=== PATIENT | female | born 1945 | race Caucasian/White ===

== ENCOUNTER 2020-08-11 06:53 | Outpatient (NON) | payer MEDICARE, OTHER, SELFPAY ==
[2020-08-11 21:43] LABS: SARS-CoV-2 RNA PCR Negative
== END 2020-08-11 06:54 ==
PROVIDERS: PCP Internal Medicine; Visit Provider Internal Medicine
DX: Z20.828 Contact with and (suspected) exposure to other viral communicable diseases (principal)
CPT/HCPCS: 87635; C9803; U0003

== ENCOUNTER 2020-09-01 09:17 | Outpatient (CLI) | payer MEDICARE, OTHER, SELFPAY ==
--- NOTE | ~2020-09-01 | XR_ITS ---
EXAMINATION: XR knee LT 3V DATE: 09/01/2020 09:50 INDICATION: Left knee pain. TECHNIQUE: 3 views of left knee were obtained. COMPARISON: None. FINDINGS: Bone alignment is normal. No fracture. There is mild tricompartmental osteoarthritis. No kn ee joint effusion. IMPRESSION: 1. Mild left knee osteoarthritis. Reviewed, dictated and finalized at location B. INDUSTRIAL DEVELOPMENT CONSULTANT
== END 2020-09-01 09:18 | disposition home or self-care (01) ==
LOC: ANHIMG 09:22
PROVIDERS: PCP Internal Medicine; Visit Provider Nurse Practitioner
DX: M17.12 Unilateral primary osteoarthritis, left knee (principal)
CPT/HCPCS: 73562

== ENCOUNTER 2020-09-12 13:59 | Outpatient (CLI) | payer MEDICARE, OTHER, SELFPAY ==
--- NOTE | ~2020-09-12 | US_ITS ---
EXAMINATION: US joint non vasc ltd LT DATE: 09/12/2020 14:25 INDICATION: Left popliteal mass and pain. TECHNIQUE: Multiple grayscale and Doppler ultrasound images of the left lower limb popliteal region w ere obtained. COMPARISON: Left knee radiographs 09/01/2020 FINDINGS: There is no abnormal mass or Ortiz's cyst. IMPRESSION: 1. No abnormal mass or Ortiz cyst in the patient's area of concern in the left popliteal region. Reviewed, dictated and finalized at location A. T LINE OPERATOR
== END 2020-09-12 14:00 | disposition home or self-care (01) ==
PROVIDERS: PCP Internal Medicine; Visit Provider Nurse Practitioner
DX: M25.562 Pain in left knee (principal)
CPT/HCPCS: 76882

== ENCOUNTER 2021-03-06 19:00 | Emergency (ER) | payer MEDICARE, OTHER, SELFPAY ==
--- NOTE | ~2021-03-06 | CT_ITS ---
EXAMINATION: CTA brain carotid DATE: 03/06/2021 21:45 INDICATION: Right-sided neck and facial pain TECHNIQUE: Computed tomographic angiography (CTA) of the head was performed without and with 100 mL O mnipaque-350 intravenous contrast. CTA of the neck was performed with intravenous contrast. The dose- length product was 1462.00 mGy-cm. Maximum intensity projection and volume rendered 3D-reconstruction s were created by the technologist on a separate workstation. Automated exposure control and iterativ e reconstruction technique were employed. COMPARISON: None. FINDINGS: HEAD CTA: There is no acute intraparenchymal hemorrhage. No evidence of mass lesion. No evidence of a cute infarction. There is mild periventricular and subcortical hypodensity probably related to small vessel ischemic disease. There is mild prominence of the sulci and ventricles related to cerebral atr ophy. Intracranial calcified cerebral atherosclerosis is noted. There are no extra-axial collections. There is no mass effect or midline shift. Changes in the globes are likely from ocular lens surgery. There is opacification of the sphenoid sinuses with calcified material, consistent with chronic sinu sitis. There is no significant stenosis of the basilar artery or posterior cerebral arteries. There is no si gnificant stenosis of the intracranial internal carotid arteries or the anterior or middle cerebral a rteries. The anterior communicating artery and posterior communicating arteries are normal. There is no aneurysm. NECK CTA: The thyroid gland is unremarkable. The submandibular and parotid glands are symmetric. Ther e is no lymphadenopathy. There are no masses identified. The airway is unremarkable. There are no oss eous abnormalities. The superior mediastinum is unremarkable. There is 0% stenosis of the proximal right internal carotid artery relative to normal distal artery l umen diameter (NASCET criteria). There is 0% stenosis of the proximal left internal carotid artery re lative to normal distal artery lumen diameter. IMPRESSION: 1. No acute intracranial abnormality. Normal head CTA. 2. 0% stenosis of the proximal right internal carotid artery relative to normal distal artery lumen d iameter (NASCET criteria). 3. 0% stenosis of the proximal left internal carotid artery relative to normal distal artery lumen di ameter. 4. Chronic sphenoid sinusitis. Reviewed, dictated and finalized at location A. IMPRESSION: 1. No acute intracranial abnormality. Normal head CTA. 2. 0% stenosis of the proximal right internal carotid artery relative to normal distal artery lumen diameter (NASCET criteria). 3. 0% stenosis of the proximal left internal carotid artery relative to normal distal artery lumen diameter. 4. Chronic sphenoid sinusitis.
[2021-03-06 19:26] VITALS: BP 142/73; PULSE 85; RESP 18; TEMP 36.5; O2SAT 100
[2021-03-06 20:01] VITALS: BP 142/73; PULSE 86; RESP 18; TEMP 36.5; O2SAT 99
[2021-03-06 21:00] LABS: Basophils Percent Auto 0.6 % (0.2-1.2); Eosinophils Absolute Auto 0.2 K/mm3 (0-0.3); Eosinophils Percent Auto 2.2 % (0-4.4); Hematocrit 42.3 % (37.0-47.0); Hemoglobin 14.2 g/dL (12.0-15.0); Immature Granulocyte Absolute 0.03 K/mm3 (0.00-0.031); Immature Granulocyte Percent A 0.4 % (0-0.5); Lymphocytes Absolute Auto 2.14 K/mm3 (0.9-3.2); Lymphocytes Percent Auto 31.7 % (18.3-44.2); Mean Corpuscular HGB Conc 33.6 g/dl (32-36); Mean Corpuscular Hemoglobin 30.9 pg (26-34); Mean Corpuscular Volume 92.2 fl (80-100); Mean Platelet Volume 7.9 fl (7.4-10.4); Monocytes Absolute Auto 0.5 K/mm3 (0.1-0.6); Monocytes Percent Auto 7.2 % (2.6-8.5); Neutrophils Absolute Auto 3.9 K/mm3 (1.3-6.7); Neutrophils Percent Auto 57.9 % (45.5-73.1); Platelet Count Result 334 k/mm3 (150-375); Red Blood Count 4.59 M/mm3 (4.2-5.4); Red Cell Distribution Width 12.6 % (11.5-14.5); White Blood Count 6.8 K/mm3 (4.5-10.0)
[2021-03-06 21:12] LABS: Anion Gap 3 mmol/L (8-16); Blood Urea Nitrogen 10 mg/dL (7-17); CRP < 0.5 mg/dL (<1.0); Calcium 9.4 mg/dL (8.4-10.2); Carbon Dioxide 30 mmol/L (22-30); Chloride 103 mmol/L (98-107); Estimated CRCL calculation 39 ml/min; Estimated Glomerular Filt Rate > 60; Glucose 90 mg/dL (65-105); Potassium 3.8 mmol/L (3.4-5.0); Sodium 136 mmol/L (137-145)
--- NOTE | 2021-03-06 22:00 | ED.NECK ---
HPI - Neck Pain/Injury General Chief Complaint: Neck Pain/Injury Stated Complaint: head pain Time Seen by Provider: 03/06/21 20:22 Source: patient and RN notes reviewed Mode of arrival: ambulatory Limitations: no limitations History of Present Illness HPI Narrative: This is 75 year old female who presents for evaluation of right neck pain and headache. She states she developed her pain 1 week after receiving her COVID vaccination. She reports constant dull ache to right posterior neck and base of her skull. She also reports pain to right face and right jaw. She was evaluated by a chiropractor and she states her pain was relieved for 3 days gut it returned. She has continued to have constant pain. She states her was concerned she may have a blood clot. She denies nausea, vomiting, blurred vision, dizziness, focal weakness. She took aleve for pain , and it gave her a small amount of relief. Related Data Home Medications Medication Instructions Recorded Confirmed testosterone 50 mg/5 gram (1 %) 1 packet TRANSDERM DAILY 09/10/19 09/09/20 transdermal gel Allergies Allergy/AdvReac Type Severity Reaction Status Date / Time No Known Allergies Allergy Verified 09/01/20 08:29 Review of Systems Review of Systems: All systems reviewed & are unremarkable except as noted in HPI and below PMFSH Past Medical History Medical History (Updated 03/07/21 @ 00:00 by Danna Amador) Benign essential hypertension Fibromyalgia Mixed hyperlipidemia Family History Family History Mother Family history of osteoporosis Hypertension Family history of osteoarthritis Carcinoma of colon Family history of heart disease in male family member before age 55 Father Family history of Alzheimer's disease Family history of heart disease in male family member before age 55 Sibling Family history of lung cancer Social History Social History Smoking status: Never smoker Alcohol intake: never Exam Const: General: no acute distress and alert Orientation/consciousness: patient oriented x3 HENMT: Head: normocephalic and atraumatic Ears: external ears normal and TM's normal bilaterally Face and sinus: normal facial exam, sinuses nontender and face symmetric Eyes: Conjunctivae: conjunctivae normal Pupils: Equal, round and reactive pupils present EOM: EOMs intact bilaterally Chest: Chest palpation & inspection: normal inspection of the chest Resp: Effort & Inspection: normal respiratory effort and no retractions Auscultation: clear to auscultation bilaterally Cardio: Rate: regular rate Rhythm: regular rhythm Heart sounds: no murmurs GI: GI Palp: Yes Soft to palpation, No Tenderness to palpation present (GI) and No Guarding due to palpation present (GI) Auscultation: normal bowel sounds Neuro: General: patient oriented x3 and moves all extremities Cranial nerves: Yes Nystagmus not present Psych: Appearance: grossly normal Mental Status: mental status grossly normal Affect: normal affect Course Reevaluation(s) Reevaluation #1: I Discussed with patient CT did not show any clots or stenosis. It just shows chronic sinusitis. She has follow up with PCP on . She request flexeril Date: 03/06/21 Time: 22:25 Vital Signs Vital signs: Vital Signs Temperature 97.7 F 03/06/21 19:26 Pulse Rate 85 03/06/21 19:26 Respiratory Rate 18 03/06/21 19:26 Blood Pressure 142/73 H 03/06/21 19:26 Pulse Oximetry 100 03/06/21 19:26 Temperature 97.7 F 03/06/21 20:01 Pulse Rate 70 03/06/21 22:30 Respiratory Rate 16 03/06/21 22:30 Blood Pressure 130/62 03/06/21 22:30 Pulse Oximetry 99 03/06/21 22:30 MDM - Neck Pain/Injury Lab Data Attestation: I reviewed the patient's lab results. Result diagrams: 03/06/21 20:53 03/06/21 20:53 L
[2021-03-06 22:30] VITALS: BP 130/62; PULSE 70; RESP 16; O2SAT 99
== END 2021-03-06 22:37 | disposition home or self-care (01) ==
PROVIDERS: Emergency Provider General Practice; PCP Internal Medicine
DX: M54.2 Cervicalgia (principal); I10 Essential (primary) hypertension; M79.7 Fibromyalgia; E78.2 Mixed hyperlipidemia
CPT/HCPCS: 36415; 70496; 70498; 80048; 85025; 86140; 99284; Q9967

== ENCOUNTER 2021-10-05 07:23 | Outpatient (CLI) | payer MEDICARE, OTHER, SELFPAY ==
--- NOTE | ~2021-10-05 | XR_ITS ---
EXAMINATION: XR barium swallow DATE: 10/05/2021 08:22 INDICATION: Dysphagia, unspecified TECHNIQUE: The patient drank thick barium, gas-producing crystals, and thin barium. Fluoroscopy of th e hypopharynx and esophagus was performed. Fluoroscopy exposure time was 1.5 minutes. The DAP for thi s procedure was 2.899 Gycm2. COMPARISON: 11/01/2018 FINDINGS: There is no mass or stricture of the esophagus. There is a prominent contraction of the cri copharyngeus muscle, a new finding since the comparison examination. Esophageal motility is normal. T here is no hiatal hernia. There was no gastroesophageal reflux with provocative maneuvers. IMPRESSION: 1. Prominent cricopharyngeus contraction, new since the comparison examination, which may account for the patient's dysphagia. Reviewed, dictated and finalized at location A. WASHER
== END 2021-10-05 07:24 | disposition home or self-care (01) ==
LOC: ANHIMG 07:25
PROVIDERS: PCP Internal Medicine; Visit Provider Internal Medicine
DX: R13.10 Dysphagia, unspecified (principal); K22.4 Dyskinesia of esophagus
CPT/HCPCS: 74220

== ENCOUNTER 2021-12-26 10:31 | Outpatient (CLI) | payer MEDICARE, OTHER, SELFPAY ==
--- NOTE | ~2021-12-26 | US_ITS ---
[facility] DATE: 12/26/2021 11:00 INDICATION: Left knee joint effusion TECHNIQUE: Multiple grayscale and Doppler ultrasound images of the left knee were obtained. COMPARISON: None FINDINGS: Large Ortiz's cyst at the left popliteal fossa with typical comma shaped configuration curving around the medial head of the gastrocnemius on transaxial imaging. This anechoic portion of the cyst which measures 4.9 x 0.7 x 2.6 cm. This communication with a second lobular component to the cyst containin g heterogeneous hypoechoic material most likely synovitis which measures 5.0 x 1.2 x 2.1 cm. The left popliteal and gastrocnemius veins are patent and compressible. IMPRESSION: 1. Large multilobular Ortiz's cyst at the left popliteal fossa, the more proximal component at its or igin containing anechoic fluid and a more distal lobular component containing hypoechoic material mos t likely synovitis or blood/clot in the appropriate clinical setting. Reviewed, dictated and finalized at location A. GUIDE IMPRESSION: 1. Large multilobular Ortiz's cyst at the left popliteal fossa, the more proxim al component at its origin containing anechoic fluid and a more distal lobular component containing hypoechoic material most likely synovitis or blood/clot in the appropriate clinical setting.
== END 2021-12-26 10:32 | disposition home or self-care (01) ==
PROVIDERS: PCP Internal Medicine; Visit Provider Nurse Practitioner
DX: M71.22 Synovial cyst of popliteal space [Baker], left knee (principal)
CPT/HCPCS: 76882

== ENCOUNTER 2024-03-05 13:39 | Outpatient (CLI) | payer MEDICARE, OTHER, SELFPAY ==
--- NOTE | ~2024-03-05 | XR_ITS ---
XR foot RT 2V DATE: 03/05/2024 14:06 INDICATION: Right foot pain TECHNIQUE: AP and lateral views COMPARISON: None FINDINGS: No fracture or dislocation, periosteal reaction or bone destruction. IMPRESSION: No significant abnormality Reviewed, dictated and finalized at location B. IMPRESSION: No significant abnormality
--- NOTE | ~2024-03-05 | XR_ITS ---
XR lumbar spine 2-3V DATE: 03/05/2024 14:06 INDICATION: Low back pain. No injury. TECHNIQUE: AP, lateral, coned lateral lumbosacral views COMPARISON: None FINDINGS: There is mild dextro scoliosis of the lumbar spine. Osteopenia. There is grade 1 anterolisthesis at L4-5 due to degenerative change noted at the lower lumbar apophys eal joints. Moderate degenerative disc disease at L1-2, moderate to moderately severe degenerative disease at L2- 3, L3-4 and L4-5. L5-S1 interspace appears relatively well preserved. No fracture or bone destruction is evident. The lumbar pedicles are intact. The sacroiliac joints are intact. IMPRESSION: Osteopenia Mild dextro scoliosis Moderate to moderately severe degenerative disease Reviewed, dictated and finalized at location B.
--- NOTE | ~2024-03-05 | XR_ITS ---
XR thoracic spine 2V DATE: 03/05/2024 14:06 INDICATION: Thoracic spine pain. No injury. TECHNIQUE: AP, lateral views COMPARISON: 03/05/2024 cervical spine FINDINGS: There is osteopenia. There is minimal levoscoliosis. No fracture or bone destruction. The t horacic pedicles are intact. No paraspinal soft tissue thickening. There is mild degenerative spurrin g. IMPRESSION: Osteopenia Mild degenerative spurring Reviewed, dictated and finalized at location B.
--- NOTE | ~2024-03-05 | XR_ITS ---
XR_CERV2-3V_CR DATE: 03/05/2024 14:06 INDICATION: Neck pain. No injury. TECHNIQUE: AP, open-mouth, lateral views COMPARISON: None FINDINGS: C1 and C2 are normally aligned and the odontoid process is intact. No fracture or dislocati on or locked facet. There is moderately severe degenerative disc disease at C4-5, C5-6 and C6-7. There is uncovertebral joint spurring in the mid and lower cervical spine, particularly prominent on the left at C4-5. IMPRESSION: Moderately severe cervical spondylosis; no fracture or dislocation or bone destruction Reviewed, dictated and finalized at Location A. Reviewed, dictated and finalized at location B.
== END 2024-03-05 13:40 | disposition home or self-care (01) ==
PROVIDERS: PCP Nurse Practitioner Family; Visit Provider Nurse Practitioner Family
DX: M41.86 Other forms of scoliosis, lumbar region (principal); M47.896 Other spondylosis, lumbar region; M25.78 Osteophyte, vertebrae; M43.02 Spondylolysis, cervical region; M85.88 Other specified disorders of bone density and structure, other site; M79.671 Pain in right foot
CPT/HCPCS: 72040; 72070; 72100; 73620